=== PATIENT | female | born 1985 | race Caucasian/White ===

== ENCOUNTER → 2023-01-12 12:44 | Outpatient (CLI) | payer MEDICAID, SELFPAY ==
[2023-01-12 12:49] VITALS: BMI 33.3
[2023-01-12 12:55] LABS: Influenza A, PCR Not Detected (NotDetected); Influenza B, PCR Not Detected (NotDetected)
[2023-01-12 13:57] LABS: Coronavirus 19, PCR Detected (NotDetected)
== END | disposition home or self-care (01) ==
PROVIDERS: Visit Provider Nurse Practitioner Family
DX: U07.1 COVID-19 (principal)
CPT/HCPCS: 87636